=== PATIENT | female | born 2000 | race Caucasian/White ===

== ENCOUNTER 2018-06-04 16:46 | Emergency (ER) | payer SELFPAY ==
[~2018-06-04] VITALS: Ht 162.6 cm; Wt 68.0 kg
[2018-06-04 16:58] VITALS: BP 118/73
[2018-06-04] MEDS ORDERED: IBUPROFEN 600 MG TABLET. PO ONE (17:15)
[2018-06-04] MEDS ORDERED: IPRATRPIUM/ALBUTEROL 0.5/2.5MG 3 ML NEBU. NEB ONE (17:15)
[2018-06-04] MEDS ORDERED: DEXAMETHASONE SOD PHOS 20 MG/5 ML VIAL. PO ONE (17:15)
[2018-06-04 17:43] LABS: BILIRUBIN,URINE NEGATIVE (NEG); CLARITY,URINE CLOUDY; COLOR,URINE YELLOW; NITRITE,URINE NEGATIVE (NEG); PROTEIN,URINE NEGATIVE (NEG-TRACE)
--- NOTE | 2018-06-04 17:45 | PHYS DOC ---
Past Medical History Past Medical History: No Pertinent History Past Surgical History: No Surgical History Alcohol Use: None Drug Use: None Adult General Chief Complaint Chief Complaint: SORE THROAT HPI HPI 17 y/o female presents to ER for c/o sore throat, rt ear pressure, prod. cough, and sinus congestion/drainage which started 3 days ago. Pt denies fever, fatigue , difficulty swallowing, or CP/SOA. She reports she has been coughing green phlegm intermittently. She reports hx of 1ppd smoking hx. She has been taking OTC cold/flu medication with no improvement in sxs- denying tylenol or ibuprofen for pain. She recently was in senior care but reports she has been around no others since getting out with similar sxs. She reports she has been eating/ drinking without difficulty. She denies urinary sxs. She has concerns of as she had sex in past 2 wks where condom had broke. She reports LMP was 05/17/18- denies being on control or having any vaginal sxs/issues. Review of Systems Review of Systems Constitutional: Denies fever or chills [] Eyes: Denies change in visual acuity, redness, or eye pain [] HENT: Reports nasal congestion/drainage, rt ear pressure. sore throat with swelling Respiratory: Denies shortness of breath. Reports prod. cough with green phlegm Cardiovascular: Denies CP/palpitations. GI: Denies abdominal pain, nausea, vomiting, bloody stools or diarrhea [] : Denies dysuria or hematuria [] Musculoskeletal: Denies back pain or joint pain/bodyaches [] Integument: Denies rash or skin lesions [] Neurologic: Denies headache, focal weakness or sensory changes [] All other systems were reviewed and found to be within normal limits, except as documented in this note. Current Medications Current Medications Current Medications Medications (Trade) Dose Ordered Sig/Mary Start Time Stop Time Status Last Admin Dose Admin Albuterol/ Ipratropium (Duoneb) 3 ml 1X ONCE 06/04/18 17:15 06/04/18 17:16 DC 06/04/18 17:21 3 ML Dexamethasone Sodium Phosphate (Decadron) 8 mg 1X ONCE 06/04/18 17:15 06/04/18 17:16 DC 06/04/18 17:31 8 MG Ibuprofen (Motrin) 600 mg 1X ONCE 06/04/18 17:15 06/04/18 17:16 DC 06/04/18 17:30 600 MG Allergies Allergies Allergies Coded Allergies Type Severity Reaction Last Updated Verified No Known Drug Allergies 06/04/18 No Physical Exam Physical Exam Constitutional: Well developed, well nourished, no acute distress, non-toxic appearance. [] HENT: Normocephalic, atraumatic, bilateral ears normal, mucous membranes pink/ moist, no oral exudates, bilat. tonsillar swelling with mild erythema- no exudate. Bilat. turbinate swelling with no facial swelling. Maxillary/frontal sinus tenderness-mild Eyes: PERRLA, conjunctiva normal, no discharge. [] Neck: Normal range of motion, no tenderness, supple, no gross adenopathy Cardiovascular:Heart rate regular rhythm, no murmur [] Lungs & Thorax: Bilateral breath sounds clear to auscultation- diminished in bases. Resp. equal/nonlabored. Abdomen: Bowel sounds normal, soft, no tenderness, no masses, no pulsatile masses. [] Skin: Warm, dry, no erythema, no rash. [] Back: No tenderness, no CVA tenderness. [] Extremities: No tenderness, no cyanosis, no clubbing, ROM intact, no edema. [] Neurologic: Alert and oriented X 3, normal motor function, normal sensory function, no focal deficits noted. [] Psychologic: Affect normal, judgement normal, mood normal. [] Current Patient Data Vital Signs Vital Signs Date Time Temp Pulse Resp B/P (MAP) Pulse Ox O2 Delivery O2 Flow Rate FiO2 06/04/18 17:22 99 Room Air 06/04/18 16:58 98.4 96 20 118/73 (88) 98.4 Lab Values Laboratory Tests Test 06/04/18 17:19 06/04/18 17:22 Urine Collection Type Unknown Urine Color Yellow Urine Clarity Cloudy Urine pH 7.0 Urine Specific [place] 1.025 Urine Protein Negative mg/dL (NEG-TRACE) Urine Glucose (UA) Negative mg/dL (NEG) Urine Ketones (Stick) Negative mg/dL (NEG) Urine Blood Negative (NEG) Urine Nitrite Negative (NEG) Urine Bilirubin Negative (NEG) Urine Urobilinogen Dipstick 1.0 mg/dL (0.2 mg/dL) Urine Leukocyte Esterase Small (NEG) Urine RBC 0 /HPF (0-2) Urine WBC 1-4 /HPF (0-4) Urine Squamous Epithelial Cells Many /LPF Urine Amorphous Sediment Present /HPF Urine Bacteria Moderate /HPF (0-FEW) Urine Mucus Mod /LPF POC Urine HCG, Qualitative Hcg negative (Negative) Group A Streptococcus Rapid Negative (NEGATIVE) Microbiology 06/04/18 Throat Culture - Final, Complete 06/04/18 - Final, Complete 06/04/18 Urine Culture - Final, Complete 06/04/18 Urine Culture Result 1 (MONAE) - Final, Complete EKG EKG [] Radiology/Procedures Radiology/Procedures [] Course & Med Decision Making Course & Med Decision Making Pertinent Labs and Imaging studies reviewed. (See chart for details) 1800: Patient reports following dose of ibuprofen and Decadron along with DuoNeb her symptoms have improved. Patient reports he is having less coughing and feels her throat pain and swelling is much better. Patient is in no visible distress remaining nontoxic in appearance at this time. Discussed negative UCG and negative strep test. UA was sent due to concentrated cloudy specimen and results were unremarkable. Pt on re-exam has increased air movement in bases with clear lung sounds throughout. Tonsillar swelling has improved with mild erythema bilat. no exudate and uvula midline NL appearance. Discussed viral symptoms. Discussed pt's case and plan of care with Dr. Grewal who viewed pt's xray with no acute findings. Will provide 4 day course of Prednisone. Smoking cessation was discussed with pt. OTC meds discussed such as mucinex, tylenol and/or ibuprofen. Encouraged increase fluid intake. Will provide clinic/physician information as pt has no PCP. Discharge instructions discussed and education provided on s&s to return to ER for. Pt agreeable with discharge plan. Did discuss control as pt had concerns of . Dragon Disclaimer Dragon Disclaimer This electronic medical record was generated, in whole or in part, using a voice recognition dictation system. Departure Departure Impression: Primary Impression: Cough Additional Impression: Viral syndrome Disposition: 01 HOME, SELF-CARE Condition: STABLE Patient Instructions: Cough, Adult, Smoking Cessation, Viral Syndrome Additional Instructions: Drink plenty of fluids and avoid smoking. Over the counter tylenol and/or Ibuprofen for pain/fever as directed on container. While in the ER you received Decadron (steroid), ibuprofen, and a Duoneb breathing treatment. Scripts Prednisone (PREDNISONE) 20 Mg Tablet 40 MG PO DAILY, #8 TAB Start prescription tomorrow as you had initial steroid dose while in the Emergency Department Prov: FRANCO LEIGH APRN 06/04/18 Problem Qualifiers FRANCO LEIGH APRN Jun 04, 2018 17:45
[2018-06-04 17:49] LABS: AMORPHOUS SEDIMENT,UR PRESENT /HPF; BACTERIA,URINE MODERATE /HPF (0-FEW); RBC,URINE 0 /HPF (0-2); SQUAMOUS EPITHELIAL CELL,UR MANY /LPF
[2018-06-04] MEDS ORDERED: PRED20TA PO (18:29)
--- NOTE | 2018-06-05 09:08 | RAD ---
Chest, 2 views, 06/04/2018: HISTORY: Productive cough The heart size and pulmonary vascularity are normal. No pulmonary infiltrate is seen. There is no evidence of pleural fluid. IMPRESSION: No acute cardiopulmonary abnormality is detected. Electronically signed by: Dung Rivera MD (06/05/2018 9:04 AM) [facility]
== END 2018-06-04 18:36 | disposition home or self-care (01) ==
LOC: ER 16:46
DX: B34.9 Viral infection, unspecified (principal); Z87.891 Personal history of nicotine dependence
CPT/HCPCS: 71046; 81001; 81025; 87070; 87086; 87880; 94640; 99285; J1100; J7620